=== PATIENT | female | born 1985 | race Caucasian/White ===

== ENCOUNTER 2018-07-28 18:56 | Emergency (ER) | payer OTHER ==
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
[2018-07-28 21:11] VITALS: BP 118/70; PULSE 81; RESP 20; TEMP 97.8
[2018-07-29 04:45] VITALS: O2SAT 96
--- NOTE | 2018-07-29 10:27 | RAD ---
Date of service: 07/28/2018 HISTORY: back pain COMPARISON: None available. FINDINGS: BONES: Alignment maintained. No acute displaced fracture identified. DISC SPACES: Unremarkable. SOFT TISSUES: Unremarkable. No evidence of radiopaque foreign body. OTHER FINDINGS: None. IMPRESSION: No acute displaced fracture or subluxation.
--- NOTE | 2018-07-29 10:35 | RAD ---
Date of service: 07/28/2018 PROCEDURE: Radiographs of the Lumbar Spine. HISTORY: lower back pain COMPARISON: None available FINDINGS: BONES: Alignment appears satisfactory. No listhesis. No acute displaced fracture identified. DISC SPACES: Unremarkable. OTHER FINDINGS: IUD. IMPRESSION: No acute displaced fracture or subluxation identified. IUD.
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
== END 2018-07-28 21:11 | disposition home or self-care (01) ==
LOC: C.ER 18:56
DX: M25.521 Pain in right elbow (principal); M25.522 Pain in left elbow; M54.5 Low back pain; T76.21XA Adult sexual abuse, suspected, initial encounter